=== PATIENT | female | born 1950 | race Two or more races ===

== ENCOUNTER → 2017-11-08 | Emergency (ER) | payer OTHER ==
[~2017-11-08] VITALS: Ht 157.5 cm; Wt 90.7 kg
== END | disposition home or self-care (01) ==
LOC: ER 17:27
DX: S83.91XA Sprain of unspecified site of right knee, initial encounter (principal); X50.0XXA Overexertion from strenuous movement or load, initial encounter; Y93.39 Activity, other involving climbing, rappelling and jumping off; Y92.811 Bus as the place of occurrence of the external cause; Y99.8 Other external cause status